=== PATIENT | female | born 1955 | race Caucasian/White ===

== ENCOUNTER → 2020-07-25 | Outpatient (CLI) | payer MEDICARE ==
[~2020-07-25] MED LIST: ASPIRIN EC81 MG PO; ATORVASTATIN CA20 MG PO; CARVEDILOL25 MG PO; CLINDAMYCIN HC300 MG PO; ENTRESTO 97 MG1 EACH PO; FAMOTIDINE20 MG PO; FUROSEMIDE20 MG PO; HYDROCODON-ACE1 EAC4 PO; LEVOFLOXACIN250 MG PO; LEVOTHYROXINE75 MC1 PO; MONTELUKAST SOD10 MG PO; PROAIR HFA8.5 GM INH; SPIRIVA18 MCG INH; ULORIC 40 MG TA40 MG PO; XANAX0.5 MG PO
[2020-07-25 11:24] LABS: HEMOGLOBIN 9.5 gm/dl (12.3-15.3); RED BLOOD COUNT 3.19 M/UL (4.00-5.10); WHITE BLOOD COUNT 6.8 K/UL (4.5-11.0)
== END ==
LOC: LAB 10:02
PROVIDERS: Internal Medicine Cardiovascular Disease
DX: I11.0 Hypertensive heart disease with heart failure (principal); I50.22 Chronic systolic (congestive) heart failure; I42.0 Dilated cardiomyopathy
CPT/HCPCS: 36415; 71046; 80048; 85025

== ENCOUNTER 2020-07-27 06:40 | Outpatient (CLI) | payer MEDICARE ==
[~2020-07-27] VITALS: Ht 160 cm; Wt 105.2 kg
[2020-07-27] MEDS ORDERED: LEVOTHYROXINE75 MC1 PO (07:22)
[2020-07-27] MEDS ORDERED: ASPIRIN EC81 MG PO (07:22)
[2020-07-27] MEDS ORDERED: ENTRESTO 97 MG1 EACH PO (07:23)
[2020-07-27] MEDS ORDERED: FUROSEMIDE20 MG PO (07:23)
[2020-07-27] MEDS ORDERED: SPIRIVA18 MCG INH (07:24)
[2020-07-27] MEDS ORDERED: CARVEDILOL25 MG PO (07:24)
[2020-07-27] MEDS ORDERED: ULORIC 40 MG TA40 MG PO (07:24)
[2020-07-27] MEDS ORDERED: XANAX0.5 MG PO (07:25)
[2020-07-27] MEDS ORDERED: FAMOTIDINE20 MG PO (07:25)
[2020-07-27] MEDS ORDERED: ATORVASTATIN CA20 MG PO (07:25)
[2020-07-27] MEDS ORDERED: MONTELUKAST SOD10 MG PO (07:25)
[2020-07-27] MEDS ORDERED: PROAIR HFA8.5 GM INH (07:26)
[2020-07-27] MEDS ORDERED: CLINDAMYCIN HC300 MG PO (11:35)
[2020-07-27] MEDS ORDERED: HYDROCODON-ACE1 EAC4 PO (11:35)
[2020-07-27] MEDS ORDERED: LEVOFLOXACIN250 MG PO (11:35)
== END 2020-07-28 09:49 | disposition home or self-care (01) ==
LOC: CATH 06:40 → PROG CARE 14:31 → CATH 07-28 09:49
PROC: 0JH609Z Insertion of Cardiac Resynchronization Defibrillator Pulse Generator into Chest Subcutaneous Tissue and Fascia, Open Approach (ICD-10-PCS; principal; 2020-07-27)
PROC: 02H63KZ Insertion of Defibrillator Lead into Right Atrium, Percutaneous Approach (ICD-10-PCS; 2020-07-27)
PROC: 02HK3KZ Insertion of Defibrillator Lead into Right Ventricle, Percutaneous Approach (ICD-10-PCS; 2020-07-27)
PROC: 02H43KZ Insertion of Defibrillator Lead into Coronary Vein, Percutaneous Approach (ICD-10-PCS; 2020-07-27)
PROC: 4B02XTZ Measurement of Cardiac Defibrillator, External Approach (ICD-10-PCS; 2020-07-27)
DX: I42.0 Dilated cardiomyopathy (principal); I11.0 Hypertensive heart disease with heart failure; I50.22 Chronic systolic (congestive) heart failure; I44.7 Left bundle-branch block, unspecified; E78.5 Hyperlipidemia, unspecified; J44.9 Chronic obstructive pulmonary disease, unspecified; E11.9 Type 2 diabetes mellitus without complications; E03.9 Hypothyroidism, unspecified; Z79.82 Long term (current) use of aspirin; Z82.49 Family history of ischemic heart disease and other diseases of the circulatory system; Z87.891 Personal history of nicotine dependence; Z95.9 Presence of cardiac and vascular implant and graft, unspecified; Z79.899 Other long term (current) drug therapy; Z20.822 Contact with and (suspected) exposure to COVID-19
CPT/HCPCS: 33225; 33249; 71045; 93005; 93641; 94664; 94760; 99152; 99153; C1769; C1777; C1882; C1898; C1900; J1170; J1200; J1644; J2250; J3010; J3370; J7040; J7050; J7070; Q9965; U0003